=== PATIENT | male | born 1985 | race Caucasian/White ===

== ENCOUNTER → 2016-12-04 | Outpatient (CLI) | payer BC ==
[2016-12-04 14:06] LABS: HEMATOCRIT 46.1 % (38.0-50.0); MEAN CELL VOLUME 96.5 FL (83-96); MEAN CORPUSCULAR HEMOGLOBIN 33.5 PG (28-34); MEAN CORPUSCULAR HGB CONC 34.7 g/dL (30-36); MEAN PLATELET VOLUME 8.1 FL (6.5-11.5); RED BLOOD COUNT 4.78 X10e (3.90-5.60); RED CELL DISTRIBUTION WIDTH 13.3 % (11.0-15.5); WHITE BLOOD COUNT 12.2 X10e3 (4.0-10.5)
== END | disposition home or self-care (01) ==
LOC: SLABONLY 13:52
PROVIDERS: Orthopaedic Surgery
DX: Z01.812 Encounter for preprocedural laboratory examination (principal); M25.872 Other specified joint disorders, left ankle and foot
CPT/HCPCS: 36415; 85027